=== PATIENT | female | born 2000 | race Caucasian/White ===

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

== ENCOUNTER → 2022-10-06 11:08 | Outpatient (CLI) | payer OTHER, SELFPAY ==
--- NOTE | ~2022-10-06 | US_ITS ---
Pelvic ultrasound. Clinical History: ICD placement Technique: Realtime transabdominal scanning of the pelvis was performed. Color flow Doppler and Doppl er spectral analysis were performed. Findings: The uterus is anteverted. The endometrial stripe has a thickness of 4 mm. IUD in satisfact ory position. No focal mass is identified. The right ovary measures 3.1 x 2.3 x 2.8 cm. No significant right ovarian or adnexal mass is seen. The left ovary measures 2.3 x 2.8 x 3.0 cm. No significant left ovarian or adnexal mass is seen. Vascular flow present in both ovaries on Doppler spectral analysis. There is no evidence of free fluid in the cul de sac. Impression: IUD in satisfactory position. No other significant findings. Reviewed, dictated and finalized at [facility]. E COMMERCE MARKETING MANAGER Impression: IUD in satisfactory position. No other significant findings.
== END ==
PROVIDERS: PCP Family Medicine; Visit Provider Nurse Practitioner
DX: Z30.431 Encounter for routine checking of intrauterine contraceptive device (principal)
CPT/HCPCS: 76856

== ENCOUNTER 2024-06-14 08:24 | Outpatient (CLI) | payer OTHER, SELFPAY ==
--- NOTE | ~2024-06-14 | US_ITS ---
EXAMINATION: US thyroid DATE: 06/14/2024 08:42 INDICATION: Nontoxic single thyroid nodule TECHNIQUE: Multiple ultrasound images of the thyroid were obtained. COMPARISON: None. FINDINGS: The right thyroid lobe measures 4.7 x 1.4 x 1.6 cm. The left thyroid lobe measures 6.0 x 1.4 x 1.6 c m. There are multiple similar-appearing very hypoechoic nodules which are wider than tall with yulisa h margins and many with internal echogenic foci, many demonstrating posterior comet tail artifact con sistent with colloid cyst with inspissated colloid. The largest on both the left and right thyroid lo bes measure up to 7 mm. The echogenic foci without definitive posterior comet tailing are all within nodules measuring <5 mm, below the threshold for either biopsy or follow-up. There is normal echotext ure, echogenicity and vascular flow throughout the surrounding thyroid gland. IMPRESSION: 1. Multiple bilateral subcentimeter nodules with appearance most consistent with colloid cysts. No no dules meeting criteria for either biopsy or follow-up. Reviewed, dictated and finalized at location A. IMPRESSION: 1. Multiple bilateral subcentimeter nodules with appearance most consistent wit h colloid cysts. No nodules meeting criteria for either biopsy or follow-up.
== END 2024-06-14 08:25 ==
LOC: MICIMG 08:25
PROVIDERS: PCP Family Medicine; Visit Provider Physician Assistant Medical
DX: E04.2 Nontoxic multinodular goiter (principal)
CPT/HCPCS: 76536

== ENCOUNTER 2024-09-22 08:13 | Outpatient (CLI) | payer OTHER, SELFPAY | END 2024-09-22 16:38 | disposition home or self-care (01) | LOC: ANHCSM 08:14 | PROVIDERS: PCP Family Medicine; Visit Provider Family Medicine | DX: G47.30 Sleep apnea, unspecified (principal); G47.10 Hypersomnia, unspecified | CPT/HCPCS: 95810 ==

== ENCOUNTER 2024-10-02 07:13 | Outpatient (CLI) | payer OTHER, SELFPAY ==
[2024-10-02 08:45] LABS: Basophils Absolute Auto 0.1 K/mm3 (0.0-0.1); Basophils Percent Auto 1.1 % (0.2-1.2); Eosinophils Absolute Auto 0.1 K/mm3 (0-0.3); Eosinophils Percent Auto 1.7 % (0-4.4); Hematocrit 40.9 % (37.0-47.0); Hemoglobin 13.6 g/dL (12.0-15.0); Immature Granulocyte Absolute 0.02 K/mm3 (0.00-0.031); Immature Granulocyte Percent A 0.3 % (0-0.5); Lymphocytes Absolute Auto 2.47 K/mm3 (0.9-3.2); Lymphocytes Percent Auto 35.4 % (18.3-44.2); Mean Corpuscular HGB Conc 33.3 g/dl (32-36); Mean Corpuscular Hemoglobin 30.8 pg (26-34); Mean Corpuscular Volume 92.5 fl (80-100); Mean Platelet Volume 10.5 fl (7.4-10.4); Monocytes Absolute Auto 0.8 K/mm3 (0.1-0.6); Neutrophils Absolute Auto 3.5 K/mm3 (1.3-6.7); Neutrophils Percent Auto 50.5 % (45.5-73.1); Platelet Count Result 271 k/mm3 (150-375); Red Blood Count 4.42 M/mm3 (4.2-5.4); Red Cell Distribution Width 12.2 % (11.5-14.5)
[2024-10-02 08:55] LABS: Alanine Aminotransferase 16 U/L (6-35); Albumin Level 4.4 g/dL (3.5-5.1); Alkaline Phosphatase 67 U/L (38-126); Anion Gap 6 mmol/L (4-12); Aspartate Amino Transferase 23 U/L (14-36); Bilirubin,Total 0.6 mg/dL (0.2-1.3); Blood Urea Nitrogen 14 mg/dL (7-17); Calcium 9.1 mg/dL (8.4-10.2); Carbon Dioxide 27 mmol/L (22-30); Chloride 105 mmol/L (98-107); Estimated Glomerular Filt Rate > 60; Glucose 79 mg/dL (65-110); Potassium 3.5 mmol/L (3.4-5.0); Sodium 138 mmol/L (137-145)
[2024-10-02 11:27] LABS: Vitamin D 25 Hydroxy 18.6 ng/mL
--- OUTSIDE RECORDS SUMMARY | 2024-10-07 17:14 | XMS_ITS | Clinical Summary ---
Author Organization [facility] Address [address] [place] [address] Care Team Providers Care Coding Quality Analyst Name Role Phone No, Physician Primary Care Provider [phone] Immunizations Name Administration Dates Next Due Influenza, Quadrivalent, Katie l Culture-based MDCK, Preservative Free, Antibiotic Free, Intramuscular 07/19/2023,07/26/2022 Influenza, Quadrivalent, Rec ombinant, Egg Free, Preservative Free, Intramuscular 09/13/2019 Influenza, Quadrivalent, Spl it, Preservative Free, Intramuscular 07/19/2020 MMR 02/03/2022 Meningococcal MCV4P (Menactra) 02/22/2019 Pfizer SARS-CoV-2 Monovalent Vaccination (12+ Yrs) BENITES-READY TO USE 02/03/2022 Pfizer SARS-CoV-2 Monovalent Vaccination (12+ Yrs) PURPLE 04/08/2021,03/18/2021 Tdap 02/23/2022 Social History Tobacco Use Types Packs/Day Years Used Date Smoking Tobacco: Never Assessed Personal Safety Answer Date Recorded Getting School Help Needed Not on file 03/31 Comments Unknown Sex and Gender Information Value Date Recorded Sex Assigned at Not on file 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 Gender Identity Not on file Sexual Orientation Not on file Plan of Treatment Health Maintenance Due Date Last Done Comments Cervical Cancer Screening 2001 Depression Screening 2001 Hepatitis C Screening 2001 Varicella Vaccines (1 of 2 - 13+ 2-dose series) 2014 HPV Vaccines (1 - 3-dose series) 2016 Meningococcal B Vaccine (1 of 2 - Patient Seeks Protection) 2017 Hepatitis B Screening 2019 Regular Well Visit/Exam 18-64 2019 Covid-19 Vaccine ( season) 2024 02/03/2022, 04/08/2021, 03/18/2021 Influenza Vaccine (#1) 2024 3, 07/26/2022, 07/19/2020, Additional history exists DTaP/Tdap/Td Vaccine (2 - Td or Tdap) 02/24/2032 02/23/2022 Pneumococcal vaccine <65 Aged Out No longer eligible based on patient's age to complete this [place] [address] [facility] HMO Care Teams Coding Quality Analyst Relationship Specialty Start Date End Date No, Physician PCP - General 03/31/24
--- OUTSIDE RECORDS SUMMARY | 2024-10-07 17:14 | XMS_ITS | Encounter Summary ---
Author Organization [facility] Healthcare Address [address] [place] [address] Care Team Providers Care Tubing Machine Operator Name Role Phone No, Physician Primary Care Provider [phone] Encounter Details Date Type Department Care Team (Late st Contact Info) Description 03/31/2024 Orders Only [facility] [address] [facility] [address] (Third Floor) [place] [address] Justice Haas MD [address] [facility] [address] [place], [place] [id number] Pre-employment health screening examination (Primary Dx) Social History Tobacco Use Types Packs/Day Years Used Date Smoking Tobacco: Never Assessed Personal Safety Answer Date Recorded Getting School Help Needed Not on file 03/31 Comments Unknown Sex and Gender Information Value Date Recorded Sex Assigned at Not on file 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 tuberculosis). ??Patients with recent exposure to TB infected individuals exhibiting a negative T-SPOT.TB result should be considered for retesting within 6 weeks or if other relevant clinical symptoms indicate. ??Results from T-SPOT.TB testing must be used in conjunction with each individual's epidemiological history, current medical status, and results of other diagnostic evaluations. ??The T-SPOT.TB test is qualitative and results are reported as positive, borderline or negative, given that the test controls perform as expected. In line with the Centers for Disease Control and Prevention's 2010 recommendation to report quantitative measurements alongside the qualitative result, the laboratory provides spot counts for informational purposes only. ??The T-SPOT.TB test should not be interpreted as a quantitative test. T-SPOT.TB Panel A Spot Count 0 [facility] T-SPOT.TB Panel B Spot Count 1 [facility] T-SPOT.TB Negative Control Passed [facility] T-SPOT.TB Positive Control Passed [facility] Comment: Test Performed at: [employer] [facility] [address] [place] [address] ??[id number] ? ESSENCE BERRIOS,PHD Blood 03/31/2024 12:1 3 PM CDT 03/31/2024 4:58 PM CDT Narrative [facility] - 04/02/2024 3:52 PM CDT Patient is employed by/enrolled at:->[facility] us Justice Haas MD LAB MICROBIOLOGY - GENERAL OR DERABLES Final Result [facility] [place] [address] documented in this encounter Visit Diagnoses Diagnosis Pre-employment health screening examination- Primary Health examination of defined subpopulation Pre-employment health screening examination Health examination of defined subpopulation documented in this encounter Care Teams Tubing Machine Operator Relationship Specialty Start Date End Date No, Physician PCP - General 03/31/24 documented as of this encounter
--- OUTSIDE RECORDS SUMMARY | 2024-10-07 17:14 | XMS_ITS | Encounter Summary ---
Author Organization [facility] Healthcare Address [address] [place] [address] Care Team Providers Care Platinum Smith Name Role Phone No, Physician Primary Care Provider [phone] Encounter Details Date Type Department Care Team (Late st Contact Info) Description 06/22/2024 11:45 AM CDT Lab [facility] (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 T-SPOT.TB Panel A Spot Count 0 [facility] T-SPOT.TB Panel B Spot Count 0 [facility] T-SPOT.TB Negative Control Passed [facility] T-SPOT.TB Positive Control Passed [facility] Comment: Test Performed at: [employer] [facility] [address] [place] [address] ??[phone] ? ESSENCE BERRIOS,PHD Blood 06/22/2024 10:3 4 AM CDT 06/22/2024 11:00 AM CDT Narrative [facility] - 06/25/2024 5:48 PM CDT Bill to [facility] - [address] Patient is employed by/enrolled at:->[facility] us Justice Haas MD LAB MICROBIOLOGY - GENERAL OR DERABLES Final Result [facility] One [facility] Department [place] [address] documented in this encounter Visit Diagnoses Diagnosis Pre-employment health screening examination Health examination of defined subpopulation documented in this encounter Care Teams Platinum Smith Relationship Specialty Start Date End Date No, Physician PCP - General 03/31/24 documented as of this encounter
--- OUTSIDE RECORDS SUMMARY | 2024-10-07 17:14 | XMS_ITS | Referral Summary ---
Author Organization [facility] Address [address] [facility] [place] [address] Care Team Providers Care Manager Adult Name Role Phone Unavailable Primary Care Provider Unavailabl e Source Comments [facility],non-owned Affiliates and Associated Physician Practices is amultiple site organization consisting of ambulatory clinics and hospital sitesin [place], [place], [place] and [place]. This disclosure is being madepursuant to the Care Everywhere program and may not contain all information available regarding this patient. Last updated 18.[facility] Social History Tobacco Use Types Packs/Day Years Used Date Smoking Tobacco: Never Assessed Sex and Gender Information Value Date Recorded Sex Assigned at Not on file Gender Identity Not on file Sexual Orientation Not on file Plan of Treatment Not on file
--- OUTSIDE RECORDS SUMMARY | 2024-10-07 17:14 | XMS_ITS | Encounter Summary ---
Author Organization [facility] Healthcare Address [address] [place] [address] Care Team Providers Care Product Specialist Name Role Phone No, Physician Primary Care Provider [phone] Encounter Details Date Type Department Care Team (Latest Contact Info) Description 03/31/2024 12:13 PM CDT - 03/31/2024 11:59 PM CDT Hospital Encounter [address] [address] Pre-employment health screening examination Discharge Disposition: Discharge to home or self care Social History Tobacco Use Types Packs/Day Years Used Date Smoking Tobacco: Never Assessed Personal Safety Answer Date Recorded Getting School Help Needed Not on file 03/31 Comments Unknown Sex and Gender Information Value Date Recorded Sex Assigned at Not on file 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 Gender Identity Not on file Sexual Orientation Not on file documented as of this encounter Discharge Disposition Disposition Code Departure Means Destination Discharge to home or self care documented in this encounter Plan of Treatment Not on file documented as of this encounter Procedures Procedure Name Priority Date/Time Associated Diagnosis Comments T-SPOT.TB Routine 03/31/2024 12:13 PM CDT Pre-employment health screening examination documented in this encounter Results * T-SPOT.TB Blood (03/31/2024 12:13 PM CDT) [facility] T-SPOT.TB Negative SeeBelow Comment: Normal Value: Negative [...] test. T-SPOT.TB Panel A Spot Count 0 [facility] T-SPOT.TB Panel B Spot Count 1 [facility] T-SPOT.TB Negative Control Passed [facility] T-SPOT.TB Positive Control Passed [facility] Comment: Test Performed at: [employer] [facility] [place], [place] ??[phone] ? ESSENCE BERRIOS,PHD Blood 03/31/2024 12:1 3 PM CDT 03/31/2024 4:58 PM CDT Narrative [facility] - 04/02/2024 3:52 PM CDT Patient is employed by/enrolled at:->[facility] Justice Haas MD LAB MICROBIOLOGY - GENERAL OR DERABLES Final Result [facility] Department [place] [address] documented in this encounter Visit Diagnoses Diagnosis Pre-employment health screening examination Health examination of defined subpopulation documented in this encounter Care Teams Product Specialist Relationship Specialty Start Date End Date No, Physician PCP - General 03/31/24 documented as of this encounter
--- OUTSIDE RECORDS SUMMARY | 2024-10-07 17:14 | XMS_ITS | Encounter Summary ---
Author Organization [facility] Address [address] [place] [address] Care Team Providers Care Curriculum Counselor Name Role Phone Unavailable Primary Care Provider Unavailabl e Encounter Details Date Type Department Care Team (Latest Contact Info) Description 01/27/2017 4:02 PM CDT - 01/27/2017 11:59 PM CDT Hospital Encounter [facility] at [address] [address] Ines Linda MD [address] [place] [phone] Discharge Disposition: Home or Self Care Social History Tobacco Use Types Packs/Day Years Used Date Smoking Tobacco: Never Assessed Sex and Gender Information Value Date Recorded Sex Assigned at Not on file Gender Identity Not on file Sexual Orientation Not on file documented as of this encounter Plan of Treatment Not on file documented as of this encounter Visit Diagnoses Diagnosis Chest pain, unspecified type documented in this encounter
--- OUTSIDE RECORDS SUMMARY | 2024-10-07 17:14 | XMS_ITS | Clinical Summary ---
Author Organization [facility] Address [address] [place] [address] [place] [address] Care Team Providers Care Piano Mover Name Role Phone Unavailable Primary Care Provider Unavailabl e Allergies No known active allergies Medications No known medications Active Problems No known active problems Social History Tobacco Use Types Packs/Day Years Used Date Smoking Tobacco: Never Assessed Sex and Gender Information Value Date Recorded Sex Assigned at Not on file Gender Identity Not on file Sexual Orientation Not on file Last Filed Vital Signs Vital Sign Reading Time Taken Comments Blood Pressure 120/80 10/13/2022 9:05 AM INSTALLATION AND REPAIR TECHNICIAN Pulse 87 10/13/2022 9:05 AM INSTALLATION AND REPAIR TECHNICIAN Temperature 37.2 ??C (98.9 ??F) 10/13/2022 9:05 AM CS T Respiratory Rate - - Oxygen Saturation 99% 10/13/2022 9:05 AM INSTALLATION AND REPAIR TECHNICIAN Inhaled Oxygen Concentration - - Weight - - Height - - Body Mass Index - - Plan of Treatment Health Maintenance Due Date Last Done Comments CHLAMYDIA SCREENING (ANNUAL) 11-24 YEARS 2012 HPV VACCINES (1 - 3-dose series) 2016 HEPATITIS B VACCINES (1 of 3 - 19+ 3-dose series) 2020 CERVICAL CANCER SCREENING 2022 INFLUENZA VACCINE (#1) 2024 DTAP/TDAP/TD VACCINES (2 - T d or Tdap) 03/31/2029 03/31/2019 PNEUMOCOCCAL VACCINE 0-64 YEARS Aged Out No longer eligible based on patient's age to complete this topic
--- OUTSIDE RECORDS SUMMARY | 2024-10-07 17:14 | XMS_ITS | Referral Summary ---
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
--- OUTSIDE RECORDS SUMMARY | 2024-10-07 17:14 | XMS_ITS | Encounter Summary ---
Author Organization [facility] Address [address] [place] [address] Care Team Providers Care Truss Assembler Name Role Phone Unavailable Primary Care Provider Unavailabl e Encounter Details Date Type Department Care Team (Late st Contact Info) Description 09/29/2023 External Device Data [facility] ABSTRACTION Provider, Abstract NO ADDRESS ON FILE Social History Tobacco Use Types Packs/Day Years Used Date Smoking Tobacco: Never Assessed Sex and Gender Information Value Date Recorded Sex Assigned at Not on file Gender Identity Not on file Sexual Orientation Not on file documented as of this encounter Plan of Treatment Not on file documented as of this encounter Visit Diagnoses Not on filedocumented in this encounter
--- OUTSIDE RECORDS SUMMARY | 2024-10-07 17:14 | XMS_ITS | Clinical Summary ---
Author Organization [facility] Address [address] [place] [address] Care Team Providers Care Icer Machine Name Role Phone Unavailable Primary Care Provider Unavailabl e Source Comments [facility],non-owned Affiliates and Associated Physician Practices is amultiple site organization consisting of ambulatory clinics and hospital sitesin [place], [place], [place] and [place]. This disclosure is being madepursuant to the Care Everywhere program and may not contain all information available regarding this patient. Last updated 18.[facility] [employer] Social History Tobacco Use Types Packs/Day Years Used Date Smoking Tobacco: Never Assessed Sex and Gender Information Value Date Recorded Sex Assigned at Not on file Gender Identity Not on file Sexual Orientation Not on file Plan of Treatment Health Maintenance Due Date Last Done Comments PAP SMEAR 2001 HIV SCREENING 2016 HPV VACCINE (1 - 3-dose series) 2016 CHLAMYDIA/GONORRHEA SCREENING 2017 HEPATITIS C SCREENING 06/20/2019 DTAP/TDAP/TD VACCINES (1 - Tdap) 2020 HEPATITIS B VACCINE (1 of 3 - 19+ 3-dose series) 2020 DEPRESSION SCREENING 10/18/2023 COVID-19 VACCINE ( - 2023-2 5 season) 2024 INFLUENZA VACCINE (#1) 2024 ZOSTER VACCINE (1 of 2) 2051 HIB VACCINE Aged Out No longer eligi ble based on patient's age to complete this topic MENINGOCOCCAL VACCINE Aged Out No pietro della eligible based on patient's age to complete this topic PNEUMOCOCCAL VACCINE Aged Out No long er eligible based on patient's age to complete this topic
--- OUTSIDE RECORDS SUMMARY | 2024-10-07 17:14 | XMS_ITS | Patient Health Summary ---
Author Organization [facility] Address [address] [facility] [place] [address] Care Team Providers Care Medical Record Technician Name Role Phone Unavailable Primary Care Provider Unavailabl e Note from [facility],non-owned Affiliates and Associated Physician Practices is amultiple site organization consisting of ambulatory clinics and hospital sitesin [place], [place], [place] and [place]. This disclosure is being madepursuant to the Care Everywhere program and may not contain all information available regarding this patient. Last updated 18.[facility] Social History Tobacco Use Types Packs/Day Years Used Date Smoking Tobacco: Never Assessed Sex and Gender Information Value Date Recorded Sex Assigned at Not on file Gender Identity Not on file Sexual Orientation Not on file
--- OUTSIDE RECORDS SUMMARY | 2024-10-07 17:14 | XMS_ITS | Encounter Summary ---
Author Organization [facility] Healthcare Address [address] [place] [address] Care Team Providers Care Tea Bag Packer Name Role Phone No, Physician Primary Care Provider [phone] Encounter Details Date Type Department Care Team (Late st Contact Info) Description 06/22/2024 Orders Only [facility] [address] [facility] [address] (Third Floor) [place] [address] Justice Haas MD [address] [place], [place] [id number] Pre-employment health screening examination (Primary Dx) Social History Tobacco Use Types Packs/Day Years Used Date Smoking Tobacco: Never Assessed Personal Safety Answer Date Recorded Getting School Help Needed Not on file 03/31 Comments Unknown Sex and Gender Information Value Date Recorded Sex Assigned at Not on file 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 T-SPOT.TB Panel A Spot Count 0 [facility] T-SPOT.TB Panel B Spot Count 0 [facility] T-SPOT.TB Negative Control Passed [facility] T-SPOT.TB Positive Control Passed [facility] Comment: Test Performed at: [facility] [place], [place] ??[address] ? ESSENCE BERRIOS,PHD Blood 06/22/2024 10:3 4 AM CDT 06/22/2024 11:00 AM CDT Narrative [facility] - 06/25/2024 5:48 PM CDT Bill to [facility] [address] Patient is employed by/enrolled at:->[employer] Justice Haas MD LAB MICROBIOLOGY - GENERAL OR DERABLES Final Result [facility] Department [place] [address] documented in this encounter Visit Diagnoses Diagnosis Pre-employment health screening examination- Primary Health examination of defined subpopulation Pre-employment health screening examination Health examination of defined subpopulation documented in this encounter Care Teams Tea Bag Packer Relationship Specialty Start Date End Date No, Physician PCP - General 03/31/24 documented as of this encounter
--- OUTSIDE RECORDS SUMMARY | 2024-10-07 17:15 | XMS_ITS | Encounter Summary ---
Author Organization [facility] [address] [address] [address] [place] [address] Care Team Providers Care Audio Specialist Name Role Phone Unavailable Primary Care Provider Unavailabl e Reason for Visit * Reason Comments NAAT Sx: body aches, chil ls, fever , fatigue x Tues Encounter Details Date Type Department Care Team (Late st Contact Info) Description 10/13/2022 8:30 AM CLINIC LEAD Office Visit [facility] [address] [address] Eboni Oates FNP [address] [place] [address] Encounter for screening for COVID-19 (Primary Dx) Social History Tobacco Use Types Packs/Day Years Used Date Smoking Tobacco: Never Assessed Sex and Gender Information Value Date Recorded Sex Assigned at Not on file Gender Identity Not on file Sexual Orientation Not on file COVID-19 Exposure Response Date Recorded In the last 10 days, have yo u been in contact with someone who was confirmed or suspected to have Coronavirus/COVID-19? Unable to assess 10/13/2022 8:29 AM CLINIC LEAD documented as of this encounter Last Filed Vital Signs Vital Sign Reading Time Taken Comments Blood Pressure 120/80 10/13/2022 9:05 AM CLINIC LEAD Pulse 87 10/13/2022 9:05 AM CLINIC LEAD Temperature 37.2 ??C (98.9 ??F) 10/13/2022 9:05 AM CS T Respiratory Rate - - Oxygen Saturation 99% 10/13/2022 9:05 AM CLINIC LEAD Inhaled Oxygen Concentration - - Weight - - Height - - Body Mass Index - - documented in this encounter Progress Notes * Eboni Oates FNP - 10/13/2022 8:30 AM CST Chief Complaint Patient presents with NAAT Sx: body aches, chills, fever , fatigue x Tues No current outpatient medications on file. No current facility-administered medications for this visit. No Known Allergies No past medical history on file. No past surgical history on file. No family history on file. Social History Tobacco Use Smoking status: Not on file Smokeless tobacco: Not on file Substance Use Topics Alcohol use: Not on file SUBJECTIVE: Luisito Martinez is a 22 y.o. female who complains of myalgias, fever, chills, and fatigue for 7 days. Has been taking OTC's to help symptoms. Denies sick contacts. ROS: There is no history of, anorexia, chest pain, cough, dizziness, ear pain, nausea, shortness of breath, sore throat, sweats, vomiting, weakness, weight loss, wheezing, and sputum production . OBJECTIVE: BP 120/80 Pulse 87 Temp 98.9 ??F (37.2 ??C) SpO2 99% Patient is conscious, alert, oriented, in no acute distress. Eyes: Clear, no discharge. Nose: Congested, red mucosa. No rhinorrhea. Ears: EAC's nl, TM's nl. No discharge. Sinuses: Non-tender. Throat: Mild oropharyngeal redness, no exudates. No lesions. Neck: supple, no adenopathy. Chest: Normal respiratory effort, clear to auscultation, no wheezes, rales or rhonchi. Cardiology: regular rate and rhythm. Skin: No rash. Results for orders placed or performed in visit on 10/13/22 POC COVID-19 RAPID MOLECULAR NAAT Result Value Ref Range COVID-19 NAAT POC Detected (A) Not Detected INTERNAL KIT QC POC Pass Pass KIT LOT NUMBER POC [id number] KIT EXP DATE POC 08/20/23 ASSESSMENT: ICD-10-CM ICD-9-CM 1. Encounter for screening for COVID-19 Z11.52 V73.89 POC COVID-19 RAPID MOLECULAR NAAT PLAN: Orders Placed This Encounter POC COVID-19 RAPID MOLECULAR NAAT Rapid Covid test positive Provided information and counseling; handouts on AVS Rest, fluids, tylenol or ibuprofen as needed Quarantine per CDC guidelines, as discussed with patient Proceed to ER for severe shortness of breath or other concerning signs/symptoms You may need to go to the emergency department if you observe any of the following symptoms: Worsening shortness of breath or difficulty breathing Worsening cough Worsening or persistent fever Severe vomiting or diarrhea Severe weakness Confusion Persistent chest pain IC LEAD documented in this encounter Miscellaneous Notes * Patient Instructions - Eboni Oates FNP - 10/13/2022 8:30 AM CLINIC LEAD Rapid Covid test positive Provided information and counseling; handouts on AVS Rest, fluids, tylenol or ibuprofen as needed Quarantine per CDC guidelines, as discussed with patient Proceed to ER for severe shortness of breath or other concerning signs/symptoms You may need to go to the emergency department if you observe any of the following symptoms: Worsening shortness of breath or difficulty breathing Worsening cough Worsening or persistent fever Severe vomiting or diarrhea Severe weakness Confusion Persistent chest pain Thank you for choosing [facility] to provide your urgent care needs. It was our pleasure to serve you! If a physician referral was ordered for you today, you should receive a phone call regarding this within one business day. If not, contact Central Referral Scheduling at [phone] during normal work hours. Inform them you had a referral ordered during your visit at the [facility]. You were evaluated and treated today for your acute condition within the capabilities of this Urgent Care. If your symptoms persist or worsen despite treatment or become severe at any time, it is recommended that you follow up with your primary physician, the recommended specialist or proceed to the Emergency Department for further testing and treatment. BELOW THERE MAY BE A GENERIC INSTRUCTION SHEET PROVIDED FOR YOUR EDUCATION. IF THERE IS ANYTHING LISTED THAT IS NOT INDICATED DUE TO A KNOWN HEALTH CONDITION OR ALLERGY, THEN PLEASE DISREGARD THAT PORTION AND, ALWAYS, CHECK WITH YOUR PROVIDER PRIOR TO TAKING ANYTHING OVER THE COUNTER. IC LEAD documented in this encounter Plan of Treatment Not on file documented as of this encounter Procedures Procedure Name Priority Date/Time Associated Diagnosis Comments POC COVID-19 PCR DETECTION Routine 10/13/2022 9:24 AM CLINIC LEAD Encounter for screening for COVID-19 documented in this encounter Results * (ABNORMAL) POC COVID-19 RAPID MOLECULAR NAAT (10/13/2022 9:24 AM CLINIC LEAD) COVID-19 NAAT POC Detected( A) Not Detected [facility] INTERNAL KIT QC POC Pass Pass [facility] KIT LOT NUMBER POC [id number] [facility] KIT EXP DATE POC 08/20/23 [facility] 10/13/2022 9:24 AM CLINIC LEAD Eboni Oates [employer] [employer] [facility] Organization Address City/State/ZIP Co de Phone Number [facility] CLIA# [id number] [address] [place] [address] documented in this encounter Visit Diagnoses Diagnosis Encounter for screening for COVID-19- Primary documented in this encounter Additional Health Concerns Infection Onset Date Last Indicated Resolved Time COVID-19 10/13/2022 10/13/2022 11/12/2022 1:16 AM CLINIC LEAD documented as of this encounter
--- OUTSIDE RECORDS SUMMARY | 2024-10-07 17:15 | XMS_ITS | Encounter Summary ---
Author Organization [facility] Address [address] [facility] [address] Attn: Epic Prelude ADT [place]OTES[place] [address] Care Team Providers Care Dried Fruit Washer Name Role Phone Unavailable Primary Care Provider Unavailabl e Encounter Details Date Type Department Care Team (Latest Contact Info) Description 10/13/2022 Travel Social History Tobacco Use Types Packs/Day Years [...] Coronavirus/COVID-19? Unable to assess 10/13/2022 8:29 AM FRUIT TESTER documented as of this encounter Plan of Treatment Not on file documented as of this encounter Visit Diagnoses Not on filedocumented in this encounter Additional Health Concerns Infection Onset Date Last Indicated Resolved Time COVID-19 10/13/2022 10/13/2022 11/12/2022 1:16 AM FRUIT TESTER documented as of this encounter
== END 2024-10-02 07:14 | disposition home or self-care (01) ==
LOC: ANHLAB 07:15
PROVIDERS: PCP Family Medicine; Visit Provider Student in an Organized Health Care Education/Training Program
DX: E55.9 Vitamin D deficiency, unspecified (principal); G25.81 Restless legs syndrome; R53.83 Other fatigue; Z00.00 Encounter for general adult medical examination without abnormal findings
CPT/HCPCS: 36415; 80053; 82306; 82728; 85025